=== PATIENT | male | born 1980 | race Caucasian/White ===

== ENCOUNTER 2022-12-03 20:57 | Inpatient (IN) | payer MEDICARE, MEDICAID, SELFPAY ==
[2022-12-03] VITALS (7 sets, daily range): BP systolic 98–158; BP diastolic 63–86; PULSE 86–98; RESP 11–21; TEMP 36.7; O2SAT 96–100
--- NOTE | ~2022-12-03 | MR_ITS ---
EXAMINATION: MR brain/brain stem wo con DATE: 12/05/2022 08:06 INDICATION: Confusion. Weakness. TECHNIQUE: Magnetic resonance imaging (MRI) of the brain and brainstem was performed without intraven ous contrast. COMPARISON: Head CT 12/04/2022 FINDINGS: There is no intracranial hemorrhage, acute infarction, or abnormal intracranial mass lesion . The ventricles are normal in size. There is mucosal thickening in the paranasal sinuses. The orbits are normal. There is a trace right mastoid effusion. IMPRESSION: 1. Normal brain. Reviewed, dictated and finalized at location A. IMPRESSION: 1. Normal brain.
--- NOTE | ~2022-12-03 | US_ITS ---
US renal BI 12/04/2022 15:28 Procedure: Realtime transabdominal ultrasound of the kidneys and bladder. Indication: Acute renal insufficiency Comparison: No prior studies for comparison. Findings: Renal echotexture is normal bilaterally without hydronephrosis, contour deforming mass or r enal calculus. The right kidney measures 9.1 cm and left kidney measures 10.3 cm. Bladder within nor mal limits. Impression: 1: Unremarkable renal ultrasound. No stones, masses or hydronephrosis. Reviewed, dictated and finalized at location A. Impression: 1: Unremarkable renal ultrasound. No stones, masses or hydronephrosis.
--- NOTE | ~2022-12-03 | XR_ITS ---
EXAMINATION: XR chest 1V portable DATE: 12/04/2022 01:49 INDICATION: Syncope. TECHNIQUE: A single frontal view of the chest was obtained. COMPARISON: Chest 2 views 04/17/2019, CT abdomen and pelvis 12/04/2022 FINDINGS: The chest demonstrates clear lungs without pneumonia, pleural effusion, or pneumothorax. Th e heart size is normal. IMPRESSION: 1. No acute cardiopulmonary disease. Reviewed, dictated and finalized at location A.
--- NOTE | ~2022-12-03 | CT_ITS ---
EXAMINATION: CT abdomen pelvis wo con DATE: 12/04/2022 04:36 INDICATION: Abdominal pain. TECHNIQUE: Computed tomography (CT) of the abdomen and pelvis was performed without intravenous contr ast. Automated exposure control and iterative reconstruction technique were employed. The dose-length product was 1059.42 mGy-cm. COMPARISON: CT abdomen and pelvis 12/30/2016 FINDINGS: The visualized portions of the lung bases demonstrate mild atelectasis. No pleural effusion . The heart size is normal. No pericardial effusion. There is a small sliding hiatal hernia. The live r and spleen are normal. There are changes of cholecystectomy. The pancreas, adrenal glands, and kidn eys are normal. There is no urolithiasis. The bladder is distended. The prostate is mildly enlarged. There are no dilated loops of bowel. The appendix is normal. There are no pathologically enlarged lym ph nodes. There is no free intraperitoneal fluid. There is thoracolumbar dextroscoliosis. IMPRESSION: 1. Small sliding hiatal hernia. Reviewed, dictated and finalized at location A.
--- NOTE | ~2022-12-03 | CT_ITS ---
EXAMINATION: CT brain wo con DATE: 12/04/2022 04:37 INDICATION: Seizure. TECHNIQUE: Computed tomography (CT) of the head was performed without intravenous contrast. The mA wa s adjusted according to patient size. Iterative reconstruction technique was employed. The dose-lengt h product was 681.00 mGy-cm. COMPARISON: None FINDINGS: There is no intracranial hemorrhage, acute infarction, or abnormal intracranial mass lesion . The ventricles are normal in size. The orbits are normal. There is mucosal thickening in the parana karel sinuses. There is thickening and sclerosis of the mora of left sphenoid sinus, consistent with c hronic sinusitis. The mastoid air cells are normal. IMPRESSION: 1. Normal brain. 2. Chronic sinusitis. Reviewed, dictated and finalized at location A.
[2022-12-04] VITALS (48 sets, daily range): BP systolic 102–139; BP diastolic 61–87; PULSE 85–106; RESP 11–23; TEMP 36.1–36.4; O2SAT 95–100
--- NOTE | 2022-12-04 01:18 | ECG_ITS ---
Measurements Intervals [place] Rate: 89 P: 58 WY: 141 QRS: -47 QRSD: 100 T: 56 QT: 340 QTc: 415 Interpretive Statements SINUS RHYTHM LEFT ANTERIOR FASCICULAR BLOCK VOLTAGE CRITERIA FOR LVH ABNORMAL ECG NO PREVIOUS ECG AVAILABLE FOR COMPARISON Electronically Signed On 12-04-2022 7:59:28 CDT by Adria Ricardo D.O.
[2022-12-04 01:44] LABS: Basophils Absolute Auto 0.1 K/mm3 (0.0-0.1); Basophils Percent Auto 0.7 % (0.2-1.2); Eosinophils Absolute Auto 0.1 K/mm3 (0-0.3); Eosinophils Percent Auto 0.9 % (0-4.4); Hematocrit 37.2 % (42.0-52.0); Hemoglobin 11.6 g/dL (14.0-18.0); Immature Granulocyte Absolute 0.04 K/mm3 (0.00-0.031); Immature Granulocyte Percent A 0.4 % (0-0.5); Lymphocytes Absolute Auto 1.09 K/mm3 (0.9-3.2); Lymphocytes Percent Auto 11.1 % (18.3-44.2); Mean Corpuscular HGB Conc 31.2 g/dl (32-36); Mean Corpuscular Hemoglobin 27.9 pg (26-34); Mean Corpuscular Volume 89.4 fl (80-100); Mean Platelet Volume 10.9 fl (7.4-10.4); Monocytes Absolute Auto 0.9 K/mm3 (0.1-0.6); Monocytes Percent Auto 9.5 % (2.6-8.5); Neutrophils Absolute Auto 7.6 K/mm3 (1.3-6.7); Neutrophils Percent Auto 77.4 % (45.5-73.1); Platelet Count Result 246 k/mm3 (150-375); Red Blood Count 4.16 M/mm3 (4.6-6.20); Red Cell Distribution Width 13.2 % (11.5-14.5); White Blood Count 9.8 K/mm3 (4.5-10.0)
[2022-12-04 02:02] LABS: INR 1.1; Partial Thromboplastin Time 35.2 SECONDS (22.3-36.8); Prothrombin Time 14.2 Seconds (11.1-14.7)
[2022-12-04 02:23] LABS: Alanine Aminotransferase 18 U/L (6-50); Albumin Level 3.9 g/dL (3.5-5.1); Alkaline Phosphatase 130 U/L (38-126); Anion Gap 8 mmol/L (8-16); Aspartate Amino Transferase 25 U/L (17-59); Bilirubin,Total 0.5 mg/dL (0.2-1.3); Blood Urea Nitrogen 38 mg/dL (9-20); Calcium 8.7 mg/dL (8.4-10.2); Carbon Dioxide 31 mmol/L (22-30); Chloride 96 mmol/L (98-107); Estimated CRCL calculation 21 ml/min; Estimated Glomerular Filt Rate 15; Glucose 178 mg/dL (65-110); Lipase 47 U/L (23-300); Potassium 5.3 mmol/L (3.4-5.0); Sodium 135 mmol/L (137-145); Troponin I 0.025 ng/mL (0.000-0.034)
[2022-12-04] MEDS: SODIUM CHLORIDE 0.9% IV 1,000 ML 999 ML IV CONT (04:07)
--- NOTE | 2022-12-04 04:44 | ED.GENADULT ---
HPI - General Adult General Chief complaint: Seizure Stated complaint: possible seizure - no known hx - stage 4 kidney Time Seen by Provider: 12/04/22 03:25 History of Present Illness HPI narrative: Patient 41-year-old gentleman who presents the emergency department with chief complaint of possible seizure per the caregiver the patient had an episode where he became very rigid and had some shaking he also noticed that he has been fairly sick recently just not feeling well and has not really been eating and drinking much patient does take a diuretic and has had episodes with chronic renal insufficiency but has a baseline creatinine around 1.8 Related Data Home Medications Medication Instructions Recorded Confirmed aspirin 81 mg chewable tablet 81 mg PO DAILY 03/01/21 12/04/22 calcium carbonate 200 mg calcium 200 mg PO BID 03/01/21 12/04/22 (500 mg) chewable tablet (Antacid (calcium carbonate)) cholecalciferol (vitamin D3) 50 50 mcg PO DAILY 03/01/21 12/04/22 mcg (2,000 unit) capsule furosemide 20 mg tablet 20 mg PO BID 03/01/21 12/04/22 lisinopril 10 mg tablet 10 mg PO DAILY 03/01/21 12/04/22 lovastatin 20 mg tablet 20 mg PO DAILY 03/01/21 12/04/22 mycophenolate sodium 360 mg 360 mg PO BID 03/01/21 12/04/22 tablet,delayed release sodium bicarbonate 650 mg tablet 650 mg PO TID 03/01/21 12/04/22 tacrolimus 0.5 mg capsule,extended 0.5 mg PO BID 03/01/21 12/04/22 release 24 hr empagliflozin 25 mg tablet 25 mg PO DAILY 12/04/22 12/04/22 (Jardiance) loratadine 10 mg tablet (Claritin) 10 mg PO DAILY 12/04/22 12/04/22 Allergies Allergy/AdvReac Type Severity Reaction Status Date / Time No Known Allergies Allergy Verified 12/04/22 12:29 Review of Systems Review of Systems: A 10 system review of systems was completed on the patient and is negative except for what is stated in the HPI. Nursing and ancillary documentation was reviewed. [facility] Past Medical History Medical History Acute recurrent pansinusitis Asperger's syndrome Body mass index (BMI) 23 or greater (02/20/16) Bronchitis C. difficile colitis CKD (chronic kidney disease) Essential (primary) hypertension Hepatitis Hyperlipidemia Hypertension complicating diabetes Liver abscess, transplanted liver Liver disease Long-term insulin use Obesity, unspecified (06/20/16) Seasonal allergies Type 2 diabetes mellitus with hyperglycemia Type 2 diabetes mellitus with hyperlipidemia Type 2 diabetes mellitus with stage 3 chronic kidney disease Surgical History Surgical History Liver transplant status Family History Family History Grandparent Family history of lung cancer Cerebrovascular accident Cancer Hypertension Family history of type 2 diabetes mellitus Mother Family history of diabetes mellitus in first degree relative Family history of type 2 diabetes mellitus Hypertension Father No problems noted. Social History Social History Social History: Patient lives with his cousin/POA Catherine Wiggins who is his cousin. Patient is live with her for the last 14 years. Patient does have mental delay and is unable to make his own decision the POA wants the patient to be a full code. The POA stated that it would be like a 12-year-old equivalents. Smoking status: Never smoker Alcohol intake: never Substance use: never Lack of Transportation: No Lack of Food: Never True Current Housing: I Have Housing Concerned About Future Housing: No Difficulty Paying Gas/Electric Bills: No Difficulty Paying for Meds: No Currently Unemployed: No Education: High School Diploma/GED Difficulty w/ Childcare or Family Care: No Living arrangements: with family Occupation/Education: unemploy
[2022-12-04 05:27] LABS: Troponin I 0.026 ng/mL (0.000-0.034)
[2022-12-04] MEDS: SODIUM CHLORIDE 0.9% IV 1,000 ML 125 ML IV CONT (06:53)
[2022-12-04 08:48] LABS: Troponin I 0.025 ng/mL (0.000-0.034)
--- NOTE | 2022-12-04 09:42 | WPDNEURCNPN ---
Assessment and Plan Assessment and plan (1) Loss of consciousness: Code(s): R40.20 - Unspecified coma Status: Acute (2) Type 2 diabetes mellitus with hyperglycemia: Code(s): E11.65 - Type 2 diabetes mellitus with hyperglycemia Status: Acute (3) Liver transplant recipient: Code(s): Z94.4 - Liver transplant status Status: Acute (4) CKD (chronic kidney disease): Code(s): N18.9 - Chronic kidney disease, unspecified Status: Acute Plan Jean Paul Tejeda is a 41 year old male with a history of type 1 diabetes, CKD, autoimmune hepatitis s/p liver transplant in 2012, hyperlipidemia, Asperger's presenting for possible seizure. Also considering vasovagal syncope as patient had preceding lightheadedness. Episode was unwitnessed. - Routine EEG - MRI brain w/o contrast Consult date: 12/04/22 Reason for consult: Seizure HPI: Jean Paul Tejeda is a 41 year old male with a history of type 1 diabetes, CKD, autoimmune hepatitis s/p liver transplant in 2012, hyperlipidemia, Asperger's presenting for evaluation of new onset seizure. Patient reports being in his usual state of health on day of presentation. He was in his bedroom. He got up to go to the kitchen, and then reports he had a seizure. The episode was unwitnessed. He does not remember what happened but did remember waking up and feeling like himself afterwards. He was lightheadedness before the episode. He denies any tongue biting or urinary incontinence. Patient does not have a prior history of seizures. He is on cellcept and tacrolimus as part of immunotherapy. Blood pressure on arrival to [place] ED was in thr 90-110s ssytolic. Labs significant for uremia (38), and elevated Cr (4.5). Review of Systems Review of Systems: All systems reviewed & are unremarkable except as noted in HPI and below PMFSH Past Medical History Medical History Acute recurrent pansinusitis Asperger's syndrome Body mass index (BMI) 23 or greater (02/20/16) Bronchitis C. difficile colitis CKD (chronic kidney disease) Essential (primary) hypertension Hepatitis Hyperlipidemia Hypertension complicating diabetes Liver abscess, transplanted liver Liver disease Long-term insulin use Obesity, unspecified (06/20/16) Seasonal allergies Type 2 diabetes mellitus with hyperglycemia Type 2 diabetes mellitus with hyperlipidemia Type 2 diabetes mellitus with stage 3 chronic kidney disease Surgical History Surgical History Liver transplant status Family History Family History Grandparent Cerebrovascular accident Family history of lung cancer Mother Family history of diabetes mellitus in first degree relative Family history of type 2 diabetes mellitus Father Patient's father is in good health Other Cancer Hypertension Social History Social History Smoking status: Never smoker Alcohol intake: never Substance use: never Meds Home Medications and Allergies Home Medications Medication Instructions Recorded Confirmed Type aspirin 81 mg chewable tablet 81 mg PO DAILY 03/01/21 12/04/22 History calcium carbonate 200 mg calcium 200 mg PO BID 03/01/21 12/04/22 History (500 mg) chewable tablet (Antacid (calcium carbonate)) cholecalciferol (vitamin D3) 50 50 mcg PO DAILY 03/01/21 12/04/22 History mcg (2,000 unit) capsule furosemide 20 mg tablet 20 mg PO BID 03/01/21 12/04/22 History lisinopril 10 mg tablet 10 mg PO DAILY 03/01/21 12/04/22 History lovastatin 20 mg tablet 20 mg PO DAILY 03/01/21 12/04/22 History mycophenolate sodium 360 mg 360 mg PO BID 03/01/21 12/04/22 History tablet,delayed release sodium bicarbonate 650 mg tablet 650 mg PO TID 03/01/21 12/04/22 History tacrolimus 0.5 mg capsule,extended 0.5 mg PO
--- NOTE | 2022-12-04 09:48 | PM.CNNEP ---
Assessment and Plan Assessment and plan (1) REY (acute kidney injury): Code(s): N17.9 - Acute kidney failure, unspecified Status: Acute Assessment and Plan: etiology? random fluctuations versus progression of disease or something else? check urine eosinophils and urine electrolytes follow-up on renal ultrasound check CPK follow repeat labs and UOP (2) Chronic kidney disease, stage IV (severe): Code(s): N18.4 - Chronic kidney disease, stage 4 (severe) Status: Acute Assessment and Plan: likely secondary to a combination of the diabetic nephropathy, use of calcineurin inhibitors for his liver transplant, and recurrent bouts of REY over the years more recently complicated by worsening proteinuria and worsening hypertension creatinine has been fluctuating ~ 2.6 - 3.2mg/dl in the last year follow with [facility] Nephrology (3) Loss of consciousness: Code(s): R40.20 - Unspecified coma Status: Acute Assessment and Plan: seizure versus syncope versus other? head CT does not show any acute abnormalities Neurology recommendations noted foliow-up on pending testing eventual PT/OT (4) Liver transplant recipient: Code(s): Z94.4 - Liver transplant status Status: Chronic Assessment and Plan: due to autoimmune hepatitis s/p orthotopic liver transplantation in Oct 2012 on cellcept and tacrolimus (5) Hypertension: Code(s): I10 - Essential (primary) hypertension Status: Chronic Assessment and Plan: worsening in the last few months as an outpatient however, reasonable control at this time (due to recent start of Jardiance?) follow trend of hemodynamics (6) Type 2 diabetes mellitus with hyperglycemia: Code(s): E11.65 - Type 2 diabetes mellitus with hyperglycemia Status: Chronic Assessment and Plan: follow accuhecks glycemic control per hosptialists > 25 minutes reviewing outpatient records from [facility] as well as records available her with regard to his renal funciton and extensive past medical history. I will continue follow the patient with you while he is hospitalized make further recommendations during his hospital course Thank you for allowing me to participate in the care of this patient. History of Present Illness Reason for Consult Consult date: 12/04/22 Reason for consult: acute renal failure (on chronic kidney disease) Chief Complaint Chief complaint: Acute Kidney Injury, Seizure History of Present Illness Narrative: Most of the information I obtained is from review of the electronic medical record as well as review of his outpatient nephrology clinic notes at [facility] as is difficult to get a full and complete history from the patient given his mental status. The patient is a 41-year-old male with a past medical history as outlined below who presented to [facility] Emergency room due to concerns for possible seizure/seizure-like activity. On the day of presentation, the patient was apparently up stairs in his room when his POA heard a loud thud on the floor. Subsequently family members went up to check on the patient and they found him in a locked in position being somewhat stiff and apparently he was humming. His blood sugar was checked and was in within normal range . The apparent seizure-like activity last and locked in presentation lasted for about a minute.upon further questioning by the POA, is been noted that the patient has had poor oral and fluid intake for last few days and when the a for mentioned seizure-like activity occurred, his blood pressure was on the lower side of normal when he is usually somewhat hypertensive. Workup and evaluation emergency room demonstrated the patient be normotensive and in no apparent distress. A CT scan of his head did not demonstrate any acute intracranial process and routine blood test demonstrated labs consistent with
--- NOTE | 2022-12-04 10:30 | PM.IMHP ---
H&P: HPI History of Present Illness Date/Time: 12/04/22 1030 Chief Complaint: Seizure like activity Narrative: patient is a 41-year-old male with a past medical history of mental delay, liver transplant, hyperlipidemia, diabetes who presented to the ED with complaints of seizure-like activity. According to the POA wanted the patient was upstairs in his room when they heard a loud thud on the floor. She described the thought is it being like a laundry basket hitting the floor. She stated that her son went to look to see what it was and the patient was on the floor. When she got up to see the patient she stated that the patient was locked in stiff and was humming. She did check his sugar however sugars 126 at home. She also stated that since about 3 days ago the patient has had thick yellow sputum with cough and has not been feeling really well. She stated since this is all happened the patient has not been eating or drinking well. She also stated that the locked in seizure-like activity lasted for about a minute. She stated that when they arrived his blood pressure was low and the patient does normally have blood pressure that is slow. She stated that his normal blood pressures 140 systolically. She also stated that he does have chronic kidney disease and that the patient's creatinine at their last visit was 4.[address] patient sees Dr. Restrepo at [facility]. She also stated that the patient has not been urinating a lot however he did have a large amount a urine out prior to coming to the floor. She also stated that the patient has been grimacing and showing signs of back spasming. the patient currently denies any chest pain, shortness a breath, nausea, vomiting, diarrhea constipation. He also stated that his back on the left side is hurting him. However with the patient's mental status and was unable to complete review of systems. CT of the head did show normal brain and chronic sinusitis. Patient is being admitted to the hospitalist service under observation. Review of Systems Review of Systems: ROS unobtainable: Yes unobtainable due to mental status PMFSH Past Medical History Medical History Acute recurrent pansinusitis Asperger's syndrome Body mass index (BMI) 23 or greater (02/20/16) Bronchitis C. difficile colitis CKD (chronic kidney disease) Essential (primary) hypertension Hepatitis Hyperlipidemia Hypertension complicating diabetes Liver abscess, transplanted liver Liver disease Long-term insulin use Obesity, unspecified (06/20/16) Seasonal allergies Type 2 diabetes mellitus with hyperglycemia Type 2 diabetes mellitus with hyperlipidemia Type 2 diabetes mellitus with stage 3 chronic kidney disease Surgical History Surgical History Liver transplant status Family History Family History Grandparent Family history of lung cancer Cerebrovascular accident Cancer Hypertension Family history of type 2 diabetes mellitus Mother Family history of diabetes mellitus in first degree relative Family history of type 2 diabetes mellitus Hypertension Father No problems noted. Social History Social History (Updated 12/04/22 @ 16:34 by RACHAEL Kelly) Social History: Patient lives with his cousin/POA Catherine Wiggins who is his cousin. Patient is live with her for the last 14 years. Patient does have mental delay and is unable to make his own decision the POA wants the patient to be a full code. The POA stated that it would be like a 12-year-old equivalents. Smoking status: Never smoker Alcohol intake: never Substance use: never Lack of Transportation: No Lack of Food: Never True Current Housing: I Have Housing Concerned About Future Housing: No Difficulty Paying Gas/Electric Bills: No Difficulty Paying
[2022-12-04 12:03] LABS: Glucose Point of Care 229 mg/dl (65-105)
--- NOTE | 2022-12-04 12:25 | ADMGEN ---
This patient, Jean Paul Tejeda, was admitted to 3 Med Surg Room 311-01. Patient/family oriented to hospital policies and general routines including ID bracelet, bed and alarms, visiting hours, pain management, procedures, bathroom and other care routines, personal items, smoking policy, room service/diet, and visiting hours. Information on how to activate the Rapid Response Team has been discussed. Patient/Family are encouraged to report perceived risks to care and to ask questions if they do not understand what they are told or what they should do.
[2022-12-04] MEDS: INSULIN ASPART (*BKC) 100 UNITS/ML SUB-Q ×2 (12:35→17:31)
[2022-12-04] MEDS: SODIUM BICARBONATE TAB 650 MG TABLET PO ×2 (12:37→18:00)
--- NOTE | 2022-12-04 13:26 | PHAR ---
Home meds verified: Mycophenolic Acid 360mg Take 1 tablet PO BID Tacrolimus 0.5mg Take 1 capsule PO BID
[2022-12-04] MEDS: ENOXAPARIN 30 MG/0.3 ML SYRINGE SUB-Q (14:15)
[2022-12-04] MEDS: TIZANIDINE HCL 2 MG TABLET PO (15:53)
[2022-12-04 16:24] LABS: Glucose Point of Care 230 mg/dl (65-105)
[2022-12-04] MEDS: CALCIUM CARBONATE (TUMS) 500 MG (200 MG ELEMENTAL) PO (18:00)
[2022-12-04 18:29] LABS: Creatinine Urine 49.8 mg/dL; Urea Random Urine 222 MG/DL
[2022-12-04 18:30] LABS: Sodium Urine Random 74 meq/L
[2022-12-04] MEDS: AMOXICILLIN/CLAVULANATE K 500-125 MG TAB 1 TABLET PO (21:24)
[2022-12-04] MEDS: INSULIN GLARGINE (*BKC) 100 UNITS/ML 23 UNITS SUB-Q (21:26)
[2022-12-04 22:34] LABS: Glucose Point of Care 171 mg/dl (65-105)
[2022-12-05] VITALS (9 sets, daily range): BP systolic 101–150; BP diastolic 62–85; PULSE 67–111; RESP 16–18; TEMP 35.2–36.2; O2SAT 95–98
[2022-12-05 06:39] LABS: Alanine Aminotransferase 14 U/L (6-50); Albumin Level 3.3 g/dL (3.5-5.1); Alkaline Phosphatase 112 U/L (38-126); Anion Gap 5 mmol/L (8-16); Aspartate Amino Transferase 19 U/L (17-59); Bilirubin,Total 0.4 mg/dL (0.2-1.3); Blood Urea Nitrogen 33 mg/dL (9-20); Calcium 8.3 mg/dL (8.4-10.2); Carbon Dioxide 26 mmol/L (22-30); Chloride 105 mmol/L (98-107); Estimated CRCL calculation 23 ml/min; Estimated Glomerular Filt Rate 17; Glucose 103 mg/dL (65-110); Magnesium 1.7 mg/dL (1.6-2.3); Sodium 136 mmol/L (137-145)
[2022-12-05 06:48] LABS: Potassium 4.5 mmol/L (3.4-5.0)
[2022-12-05 08:04] LABS: Glucose Point of Care 113 mg/dl (65-105)
[2022-12-05] MEDS: ACETAMINOPHEN 500 MG TABLET 1000 MG PO (08:13)
[2022-12-05] MEDS: SODIUM BICARBONATE TAB 650 MG TABLET PO ×3 (08:16→17:12)
[2022-12-05] MEDS: CALCIUM CARBONATE (TUMS) 500 MG (200 MG ELEMENTAL) PO ×2 (08:16→17:12)
[2022-12-05] MEDS: AMOXICILLIN/CLAVULANATE K 500-125 MG TAB 1 TABLET PO (08:16)
[2022-12-05] MEDS: EMPAGLIFLOZIN 25 MG TABLET PO (08:53)
[2022-12-05] MEDS: LORATADINE 10 MG TABLET PO (08:53)
[2022-12-05] MEDS: ASPIRIN 81 MG CHEWABLE TABLET PO (08:54)
[2022-12-05] MEDS: CHOLECALCIFEROL 1,000 UNITS TABLET 2000 UNITS PO (08:54)
[2022-12-05] MEDS: lisinopriL 10 MG TABLET PO (08:54)
[2022-12-05] MEDS: LOVASTATIN 20 MG TABLET PO (08:54)
[2022-12-05] MEDS: SODIUM CHLORIDE 0.9% IV 1,000 ML 125 ML IV CONT (09:47)
[2022-12-05 09:55] LABS: Basophils Absolute Auto 0.1 K/mm3 (0.0-0.1); Basophils Percent Auto 0.6 % (0.2-1.2); Eosinophils Absolute Auto 0.3 K/mm3 (0-0.3); Eosinophils Percent Auto 2.5 % (0-4.4); Hemoglobin 10.7 g/dL (14.0-18.0); Immature Granulocyte Absolute 0.03 K/mm3 (0.00-0.031); Immature Granulocyte Percent A 0.3 % (0-0.5); Lymphocytes Absolute Auto 1.07 K/mm3 (0.9-3.2); Lymphocytes Percent Auto 10.5 % (18.3-44.2); Mean Corpuscular HGB Conc 30.6 g/dl (32-36); Mean Corpuscular Volume 91.6 fl (80-100); Neutrophils Absolute Auto 7.7 K/mm3 (1.3-6.7); Neutrophils Percent Auto 76.1 % (45.5-73.1); Platelet Count Result 240 k/mm3 (150-375); Red Blood Count 3.82 M/mm3 (4.6-6.20); Red Cell Distribution Width 13.4 % (11.5-14.5); White Blood Count 10.2 K/mm3 (4.5-10.0)
[2022-12-05 11:55] LABS: Glucose Point of Care 147 mg/dl (65-105)
[2022-12-05] MEDS: TIZANIDINE HCL 2 MG TABLET PO (12:01)
--- NOTE | 2022-12-05 12:52 | P.PNNP_ITS ---
Progress Note: A&P Assessment and Plan (1) REY (acute kidney injury): Code(s): N17.9 - Acute kidney failure, unspecified Status: Acute Assessment and Plan: * etiology? * random fluctuations versus progression of disease or something else? * urine electrolytes non-prerenal * renal ultrasound without acute changes * follow repeat labs and UOP (2) Chronic kidney disease, stage IV (severe): Code(s): N18.4 - Chronic kidney disease, stage 4 (severe) Status: Acute Assessment and Plan: * likely secondary to a combination of the diabetic nephropathy, use of calcineu rin inhibitors for his liver transplant, and recurrent bouts of REY over the years * more recently complicated by worsening proteinuria and worsening hypertension * creatinine has been fluctuating ~ 2.6 - 3.2mg/dl in the last year from [facility] records I reviewed * follows with [facility] Nephrology (3) Loss of consciousness: Code(s): R40.20 - Unspecified coma Status: Acute Assessment and Plan: * seizure versus syncope versus other? * head CT does not show any acute abnormalities * Neurology recommendations noted * foliow-up on pending testing * eventual PT/OT (4) Liver transplant recipient: Code(s): Z94.4 - Liver transplant status Status: Chronic Assessment and Plan: * due to autoimmune hepatitis * s/p orthotopic liver transplantation in Oct 2012 * on cellcept and tacrolimus (5) Hypertension: Code(s): I10 - Essential (primary) hypertension Status: Chronic Assessment and Plan: * worsening in the last few months as an outpatient * however, reasonable control at this time (due to recent start of Jardiance?) * follow trend of hemodynamics (6) Type 2 diabetes mellitus with hyperglycemia: Code(s): E11.65 - Type 2 diabetes mellitus with hyperglycemia Status: Chronic Assessment and Plan: * follow accuhecks * glycemic control per hosptialists Will continue to follow. Subjective Date/time seen: 12/05/22 12:52 No apparent issues or problems voiced on my visit with patient; no apparent issues/events overnight or earlier this AM; no reported seizure activity noted; no apparent distress noted. Exam Narrative: General: WD/WN male in NAD Heart: normal S1 and S2; no rub Lungs: clear to auscultation Abdomen: soft, nontender, nondistended, positive bowel sounds Extremities: no cyanosis or clubbing; trace edema Skin: warm and dry Objective Data Vital Signs Vital Signs: Vital Signs Temp Pulse Resp BP Pulse Ox O2 Del Method 12/05/22 12:00 81 12/05/22 11:54 Room Air 12/05/22 09:32 97.1 F L 111 H 18 115/77 98 12/05/22 09:32 97.1 F L 108 H 18 131/81 96 12/05/22 08:00 97.2 F L 101 H 16 146/85 H 95 12/05/22 04:00 93 12/05/22 00:00 88 12/04/22 20:00 89 12/05/22 02:58 96.9 F L 91 18 150/80 H 97 12/04/22 20:00 99 18 98 Room Air 12/04/22 19:17 131/66 12/04/22 19:16 97.6 F 99 18 139/73 98 12/04/22 19:16 97.6 F 99 18 139/73 98 12/04/22 16:00 94 12/04/22 15:26 Room Air Intake/Output Intake/Output: Intake & Output 12/02/22 12/03/22 12/04/22 12/05/22
--- NOTE | 2022-12-05 12:52 | PM.PNNEP ---
Progress Note: A&P Assessment and Plan (1) REY (acute kidney injury): Code(s): N17.9 - Acute kidney failure, unspecified Status: Acute Assessment and Plan: etiology? random fluctuations versus progression of disease or something else? urine electrolytes non-prerenal renal ultrasound without acute changes follow repeat labs and UOP (2) Chronic kidney disease, stage IV (severe): Code(s): N18.4 - Chronic kidney disease, stage 4 (severe) Status: Acute Assessment and Plan: likely secondary to a combination of the diabetic nephropathy, use of calcineurin inhibitors for his liver transplant, and recurrent bouts of REY over the years more recently complicated by worsening proteinuria and worsening hypertension creatinine has been fluctuating ~ 2.6 - 3.2mg/dl in the last year from [facility] records I reviewed follows with [facility] Nephrology (3) Loss of consciousness: Code(s): R40.20 - Unspecified coma Status: Acute Assessment and Plan: seizure versus syncope versus other? head CT does not show any acute abnormalities Neurology recommendations noted foliow-up on pending testing eventual PT/OT (4) Liver transplant recipient: Code(s): Z94.4 - Liver transplant status Status: Chronic Assessment and Plan: due to autoimmune hepatitis s/p orthotopic liver transplantation in Oct 2012 on cellcept and tacrolimus (5) Hypertension: Code(s): I10 - Essential (primary) hypertension Status: Chronic Assessment and Plan: worsening in the last few months as an outpatient however, reasonable control at this time (due to recent start of Jardiance?) follow trend of hemodynamics (6) Type 2 diabetes mellitus with hyperglycemia: Code(s): E11.65 - Type 2 diabetes mellitus with hyperglycemia Status: Chronic Assessment and Plan: follow accuhecks glycemic control per hosptialists Will continue to follow. Subjective Date/time seen: 12/05/22 12:52 No apparent issues or problems voiced on my visit with patient; no apparent issues/events overnight or earlier this AM; no reported seizure activity noted; no apparent distress noted. Exam Narrative: General: WD/WN male in NAD Heart: normal S1 and S2; no rub Lungs: clear to auscultation Abdomen: soft, nontender, nondistended, positive bowel sounds Extremities: no cyanosis or clubbing; trace edema Skin: warm and dry Objective Data Vital Signs Vital Signs: Vital Signs Temp Pulse Resp BP Pulse Ox O2 Del Method 12/05/22 12:00 81 12/05/22 11:54 Room Air 12/05/22 09:32 97.1 F L 111 H 18 115/77 98 12/05/22 09:32 97.1 F L 108 H 18 131/81 96 12/05/22 08:00 97.2 F L 101 H 16 146/85 H 95 12/05/22 04:00 93 12/05/22 00:00 88 12/04/22 20:00 89 12/05/22 02:58 96.9 F L 91 18 150/80 H 97 12/04/22 20:00 99 18 98 Room Air 12/04/22 19:17 131/66 12/04/22 19:16 97.6 F 99 18 139/73 98 12/04/22 19:16 97.6 F 99 18 139/73 98 12/04/22 16:00 94 12/04/22 15:26 Room Air Intake/Output Intake/Output: Intake & Output 12/02/22 12/03/22 12/04/22 12/05/22 23:59 23:59 23:59 23:59 Intake Total 2540 740 Output Total 500 Balance 2540 240 Meds/Results Medications: Active Medications Generic Name Dose Route Start Last Admin Trade Name Dharmesh PRN Reason Stop Dose Admin Acetaminophen 1,000 mg 12/04/22 10:54 12/05/22 08:13 Acetaminophen 500 Mg Tablet PO 1,000 mg Q6H PRN Administration Mild Pain (1-3) or Fever Hydrocodone Bitart/Acetaminophen 1 tab 12/04/22 10:54 Hydrocodone/Acetaminophen (*Crx) 5-325 Mg Tablet PO Q6H PRN Moderate Pain (4-10) Amoxicillin/Clavulanate Potassium 1 tablet 12/04/22 21:00 12/05/22 08:16 Amoxicillin/Clavulanate K 500-125 Mg Tab PO 1 tablet Q12HR HANNAH Administration Aspirin 81 mg
[2022-12-05] MEDS: ENOXAPARIN 30 MG/0.3 ML SYRINGE SUB-Q (14:46)
--- NOTE | 2022-12-05 15:01 | PC.NURSE ---
On 12/05/22, the student, Zainab Schreiber, provided care and completed [facility] documentation on this patient. I have reviewed the student's documentation and agree with the findings.
--- NOTE | 2022-12-05 16:49 | PM.IMPN ---
Progress Note: A&P Assessment and Plan (1) Loss of consciousness: Code(s): R40.20 - Unspecified coma Status: Acute Assessment and Plan: Patient had episode of loss of consciousness, unwitnessed Family reported shaking activity that they were concerned was a seizure Syncope also considered Head CT unremarkable MRI with normal brain Seizure precautions implemented EEG ordered Patient signed out against medical advice under instruction of POA (2) Type 2 diabetes mellitus with hyperglycemia: Code(s): E11.65 - Type 2 diabetes mellitus with hyperglycemia Status: Chronic Assessment and Plan: A1c is 8.0 Continue Accu-Cheks, sliding scale insulin, hypoglycemic protocol Continue home insulin (3) Acute kidney injury superimposed on chronic kidney disease: Code(s): N17.9 - Acute kidney failure, unspecified; N18.9 - Chronic kidney disease, unspecified Status: Acute Assessment and Plan: Patient with history of chronic kidney disease, POA reported baseline of 4.2, however reviewing prior labs demonstrates a baseline of around 2.5 Creatinine elevated up to 4.5 on admission my Slight improvement with IV fluids to 4.0 Renal ultrasound unremarkable Workup pending per Nephrology for further management, however patient signed AMA (4) Hypertension: Code(s): I10 - Essential (primary) hypertension Status: Chronic Assessment and Plan: Blood pressures are stable Continue antihypertensives (5) Liver transplant recipient: Code(s): Z94.4 - Liver transplant status Status: Chronic Assessment and Plan: Continue with anti rejection meds (6) Sinusitis: Code(s): J32.9 - Chronic sinusitis, unspecified Status: Acute Assessment and Plan: Mucosal thickening in paranasal sinuses started on augmentin Subjective Date/time seen: 12/05/22 16:49 Interval history: date of service: 12/05/2022 Jean Paul Tejeda is a 41-year-old male with a history CKD, hypertension, autoimmune hepatitis s/p liver transplant, Asperger's syndrome, type 2 diabetes mellitus who is seen in follow-up for possible seizure activity. Patient is asleep during my encounter. Family present at the bedside, state the patient has been doing well. No issues at this time. Patient is easily arousable, states that he feels well and offers no complaints. Discussed with patient and family plan for continued monitoring and obtain EEG and they are agreeable Patient later left against medical advice after being evaluated, examined and plan formulated. Review of Systems Review of Systems: All systems reviewed & are unremarkable except as noted in HPI and below Exam Narrative: General: well-nourished, well-appearing 41-year-old male, supine in bed, comfortable, NARD Neuro: asleep, easily arousable, alert and oriented x4, speech clear HEENMT: normocephalic, atraumatic, EOMI, sclerae anicteric Respiratory: clear to auscultation bilaterally, nonlabored breathing Cardio: regular rate, regular rhythm with S1-S2 Abdomen: nondistended, normoactive bowel sounds, soft, nontender to palpation Extremities: no edema, erythema, or tenderness to palpation Skin: no rashes or lesions, warm and dry Psych: appropriate mood and affect, judgment and insight fair Objective Data Vital Signs Vital Signs: Vital Signs - 24 hr 12/04/22 19:16 12/04/22 19:16 12/04/22 19:17 Temperature 97.6 F 97.6 F Pulse Rate 99 99 Respiratory Rate 18 18 Blood Pressure 139/73 139/73 131/66 Pulse Oximetry 98 98 Oxygen Delivery 12/04/22 20:00 12/05/22 02:58 12/04/22 20:00 Temperature 96.9 F L Pulse Rate 99 91 89 Respiratory Rate 18 18 Blood Pressure 150/80 H Pulse Oximetry 98 97 Oxygen Delivery Room Air 12/05/22 00:00 12/05/22 04:00 12/05/22 08:00 Temperature 97.2 F L Pulse Rate 88 93 101 H Respiratory Rate 16 Blood Pressure 146/85
[2022-12-05 16:58] LABS: Glucose Point of Care 347 mg/dl (65-105)
[2022-12-05] MEDS: INSULIN ASPART (*BKC) 100 UNITS/ML SUB-Q (17:12)
--- NOTE | 2022-12-06 10:15 | P.NEURO_ITS ---
Neurology EEG Report General Information Date of Study: 12/04/22 TEST Routine EEG DIAGNOSIS New onset seizure CONDITION OF RECORDING Awake, drowsy, asleep EEG NUMBER [id number] CLINICAL HISTORY Patient presented after an episode of loss of consciousness. Concern for possible seizure. He has a history of liver transplant, but no prior history of seizure. EEG DESCRIPTION During the awake state with eyes closed the background consists of 9 Hz post erior dominant rhythm which attenuates appropriately with eye opening. The recording is continuous. No significant asymmetries of background activities are noted. With drowsiness there is waxing and waning of the dominant rhythm with eventual replacement by a mixture of beta, alpha, and theta activity. As the patient enters stage II sleep, symmetrical spindles are present. There are no epileptiform discharges or seizures during this recording. Hyperventilation and photic stimulation were not performed. IMPRESSION This is a normal routine EEG recorded in awake and asleep states. There are no electrographic seizures identified, nor are there any epileptiform discharges. Please note that a normal EEG cannot exclude a seizure disorder. Clinical correlation is recommended.
[2022-12-06 19:45] LABS: Osmolality, Urine 359 mOsm/kg (50-1200)
== END 2022-12-05 17:45 | disposition left against medical advice (07) | DRG 101 ==
LOC: ANHED 12-04 06:41 → ANH3MEDSUR 12-04 06:57
PROVIDERS: Nurse Practitioner; Admitting Provider Internal Medicine; Emergency Provider Emergency Medicine; PCP Physician Assistant; Visit Provider Physician Assistant
DX: R56.9 Unspecified convulsions (principal); F84.5 Asperger's syndrome; Z94.4 Liver transplant status; N18.4 Chronic kidney disease, stage 4 (severe); N17.9 Acute kidney failure, unspecified; E10.22 Type 1 diabetes mellitus with diabetic chronic kidney disease; I12.9 Hypertensive chronic kidney disease with stage 1 through stage 4 chronic kidney disease, or unspecified chronic kidney disease; E78.5 Hyperlipidemia, unspecified; K75.4 Autoimmune hepatitis; Z28.21 Immunization not carried out because of patient refusal; Z79.82 Long term (current) use of aspirin; Z79.4 Long term (current) use of insulin
CPT/HCPCS: 36415; 70450; 70551; 71045; 74176; 76775; 80053; 82570; 82948; 83036; 83690; 83735; 83935; 84300; 84484; 84540; 85025; 85610; 85730; 87070; 87205; 93005; 95816; 96360; 96361; 96372; 97161; 97165; 99285; A9270; G0378; J1650; J1815; J7030

== ENCOUNTER → 2023-08-12 10:43 | Outpatient (CLI) | payer MEDICARE, MEDICAID, SELFPAY ==
--- NOTE | ~2023-08-12 | XR_ITS ---
EXAMINATION: XR chest 2V 08/12/2023 10:58 INDICATION: Chest congestion PROCEDURE: 2 view chest COMPARISON: Comparison to multiple prior studies sequentially, with oldest reviewed study dated 03/02. FINDINGS: The lungs are clear. The cardiomediastinal silhouette is within normal limits. There are no pleural effusions. There is no pneumothorax suspected. IMPRESSION: 1: NO ACUTE CARDIOPULMONARY DISEASE. Reviewed, dictated and finalized at location B. LAB RADIOLOGY TECHNICIAN
== END ==
PROVIDERS: PCP Physician Assistant; Visit Provider Physician Assistant
DX: R09.89 Other specified symptoms and signs involving the circulatory and respiratory systems (principal)
CPT/HCPCS: 71046